=== PATIENT | female | born 2000 | race Two or more races ===

== ENCOUNTER 2020-02-14 02:01 | Emergency (ER) | payer MEDICAID, OTHER ==
[~2020-02-14] VITALS: Ht 165.1 cm; Wt 81.6 kg
[2020-02-14 03:48] LABS: Basophils # (auto) 0.1 10 ^3/uL (0-0.2); Basophils % (auto) 0.5 % (0.0-2.0); Eosinophils # (auto) 0 10 ^3/uL (0-0.8); White Blood Cell 13.7 10^3/uL (4.4-10.8)
[2020-02-14 03:49] LABS: Eosinophils % (auto) 0.4 % (0.0-7.0); Hematocrit 49.3 % (36.0-46.0); Hemoglobin 17.4 g/dL (12.2-16.2); Lymphocytes # (auto) 2.5 10 ^3/uL (0.4-5.4); Lymphocytes % (auto) 18.5 % (10.0-50.0); Mean Corpuscular Hemoglobin 31.1 pg (28.0-32.0); Mean Corpuscular Hgb Conc. 35.2 g/dL (32.0-36.0); Mean Corpuscular Volume 88.5 fL (80.0-100.0); Monocytes # (auto) 1.4 10 ^3/uL (0-1.3); Monocytes % (auto) 9.9 % (0.0-12.0); Neutrophils # (auto) 9.7 10 ^3/uL (1.6-8.6); Neutrophils % (auto) 70.7 % (37.0-80.0); Nucleated Red Blood Cells % 0.6 %; Platelet Count (auto) 465 10^3/uL (140-450); Red Blood Cells 5.57 10^6/uL (4.0-5.20); Red Cell Distribution Width 13.5 % (11.8-14.3)
[2020-02-14 04:06] LABS: Albumin 4.8 g/dL (3.4-5.0); Calcium 9.8 mg/dL (8.5-10.1)
[2020-02-14 04:11] LABS: BUN/Creatinine Ratio 20.4; Potassium 2.8 mmol/L (3.5-5.1)
[2020-02-14 04:24] LABS: Urine Bacteria FEW /hpf (None Seen); Urine Blood 3+ /uL (Negative); Urine Mucus FEW (None Seen); Urine Specific Gravity 1.026 (1.001-1.035); Urine WBC 17 /hpf (0 - 5)
[2020-02-14] MEDS ORDERED: SODIUM CHLORIDE 0.9% 1,000 ML IV ONE ×2 (05:15→06:45)
[2020-02-14] MEDS ORDERED: POTASSIUM CHL 20MEQ/100ML 100 ML IV ONE (05:15)
[2020-02-14] MEDS ORDERED: cefTRIAXone 1GM/50ML D5W 50 ML IV ONE (05:15)
[2020-02-14 05:37] LABS: Amylase 85 U/L (25-115); Lipase 274 U/L (73-393)
[2020-02-14 05:47] LABS: Alcohol, Urine < 3.0 mg/dL (0-10); Amphetamine Screen, Urine NEGATIVE (NEGATIVE); Barbiturate Scree,Urine NEGATIVE (NEGATIVE); Benzodiazephine Screen, Urine NEGATIVE (NEGATIVE); Cannabinoid Screen, Urine POSITIVE (NEGATIVE); Cocaine Screen, Urine NEGATIVE (NEGATIVE); Phencyclidine Screen, Urine NEGATIVE (NEGATIVE)
[2020-02-14 05:56] LABS: Opiate Scree,Urine NEGATIVE (NEGATIVE)
[2020-02-14 06:42] VITALS: BP 121/78
== END 2020-02-14 06:55 | disposition home or self-care (01) ==
LOC: ER 02:01
DX: N39.0 Urinary tract infection, site not specified (principal); E87.6 Hypokalemia; E87.1 Hypo-osmolality and hyponatremia
CPT/HCPCS: 36415; 74176; 80053; 80307; 81001; 81025; 82150; 83690; 85025; 96365; 96366; 96368; 99284; J0696; J3480

== ENCOUNTER 2020-06-04 17:48 | Emergency (ER) | payer MEDICAID ==
[~2020-06-04] VITALS: Ht 165.1 cm; Wt 81.6 kg
[2020-06-04 17:52] VITALS: BP 137/88
[2020-06-04] MEDS ORDERED: ONDANSETRON HCL 4 MG/2 ML VIAL IV ONE (18:00)
[2020-06-04] MEDS ORDERED: SODIUM CHLORIDE 0.9% 1,000 ML IVB ONE (18:00)
[2020-06-04 18:51] LABS: Basophils # (auto) 0 10 ^3/uL (0-0.2); Basophils % (auto) 0.1 % (0.0-2.0); Eosinophils # (auto) 0 10 ^3/uL (0-0.8); Hematocrit 40.1 % (36.0-46.0); Lymphocytes # (auto) 0.5 10 ^3/uL (0.4-5.4); Mean Corpuscular Hemoglobin 31.6 pg (28.0-32.0); Mean Corpuscular Hgb Conc. 34.9 g/dL (32.0-36.0); Mean Corpuscular Volume 90.6 fL (80.0-100.0); Monocytes # (auto) 0.2 10 ^3/uL (0-1.3); Monocytes % (auto) 1.4 % (0.0-12.0); Neutrophils # (auto) 9.9 10 ^3/uL (1.6-8.6); Neutrophils % (auto) 93.5 % (37.0-80.0); Red Blood Cells 4.43 10^6/uL (4.0-5.20); White Blood Cell 10.6 10^3/uL (4.4-10.8)
[2020-06-04 19:02] LABS: Albumin 4.2 g/dL (3.4-5.0); Potassium 3.7 mmol/L (3.5-5.1)
[2020-06-04 19:05] LABS: Bilirubin, Total 0.4 mg/dL (0.2-1.0); Total Protein 8.4 g/dL (6.4-8.2)
== END 2020-06-05 02:26 | disposition home or self-care (01) ==
LOC: ER 17:48
DX: B34.9 Viral infection, unspecified (principal); R11.2 Nausea with vomiting, unspecified
CPT/HCPCS: 36415; 80053; 83690; 85025; 96361; 96374; 99283; J2405; J7030

== ENCOUNTER 2020-06-07 13:31 | Emergency (ER) | payer MEDICAID ==
[~2020-06-07] VITALS: Ht 165.1 cm; Wt 79.4 kg
[2020-06-07 17:00] VITALS: BP 116/74
== END 2020-06-07 17:46 | disposition home or self-care (01) ==
LOC: ER 13:31
DX: K21.9 Gastro-esophageal reflux disease without esophagitis (principal); R11.2 Nausea with vomiting, unspecified
CPT/HCPCS: 81002; 81025